=== PATIENT | female | born 1980 | race Caucasian/White ===

== ENCOUNTER 2020-09-20 13:22 | Inpatient (IN) ==
[2020-09-20] MEDS ORDERED: NS 0.9% 1000 ml BAG 1,000 ML IV ONE ×2 (16:02→19:48)
[2020-09-20] MEDS ORDERED: Morphine 4 MG/ML VIAL (1 ml) IV ONE (16:05)
[2020-09-20] MEDS ORDERED: Ondansetron 4 mg VIAL 2 MG/ML 2 ml VIAL IV ONE (16:05)
[2020-09-20 16:56] LABS: ALT 23 U/L (7-52); AST 41 U/L (13-39); Albumin 2.7 g/dL (3.2-5.2); Albumin/Globulin Ratio 0.6 (1-3); Alkaline Phosphatase 293 U/L (34-104); Amylase 184 U/L (29-103); Anion Gap 5 mmol/L (2-11); BUN/Creatinine Ratio 9.8 (8-20); Blood Urea Nitrogen 5 mg/dL (6-24); C Reactive Protein 4.39 mg/L (<8.01); CO2 Carbon Dioxide 30 mmol/L (22-32); Calcium 8.3 mg/dL (8.6-10.3); Chloride 99 mmol/L (101-111); EGFR African American 162.4 (>60); EGFR Non-African American 134.3 (>60); Globulin 4.2 g/dL (2-4); Glucose 97 mg/dL (70-100); Magnesium 1.8 mg/dL (1.9-2.7); Potassium 3.7 mmol/L (3.5-5.0); Sodium 134 mmol/L (135-145); Total Protein 6.9 g/dL (6.4-8.9)
[2020-09-20 17:12] LABS: Hematocrit 32 % (35-47); Hemoglobin 10.6 g/dL (12.0-16.0); Mean Corpuscular HGB Conc 34 g/dL (31-36); Mean Corpuscular Hemoglobin 36 pg (27-31); Mean Corpuscular Volume 108 fL (80-97); Red Blood Count 2.92 10^6 /uL (3.70-4.87); White Blood Count 5.6 10^3/uL (3.5-10.8)
[2020-09-20 17:13] LABS: ABS Lymphocytes 0.6 10^3/ul (1.0-4.8); ABS Monocytes 0.5 10^3/ul (0-0.8); ABS Neutrophils 4.5 10^3/ul (1.5-7.7); Eosinophil % 0.2 %; Lipase 1191 U/L (11.0-82.0); Lymphocyte % 11.3 %; Mean Platelet Volume 8.3 fL (7.4-10.4); Platelet Count 188 10^3/uL (150-450); Red Cell Distribution Width 16 % (10-15)
[2020-09-20] MEDS ORDERED: Iohexol 300 (CONTRAST) 10 ML SDV IV ONE (17:20)
[2020-09-20] MEDS ORDERED: Magnesium Sulfate IV 1GM/100ML 1 GM/100 ML BAG IV ONE (17:58)
[2020-09-20] MEDS ORDERED: Ondansetron 4 mg VIAL 2 MG/ML 2 ml VIAL IV PRN (19:48)
[2020-09-20] MEDS ORDERED: Potassium Chlor 20 meq TAB.ER PO ONE (19:48)
[2020-09-20] MEDS ORDERED: Thiamine 100 MG/ML 2 ml VIAL 100 MG, Folic Acid 1 MG, Multiple Vitamin IV ADULT 10 ML i... IV ONE ×2 (19:55→23:00)
[2020-09-20] MEDS ORDERED: LORazepam 2 mg VIAL 1 ml IV PUSH SCH (20:00)
[2020-09-20] MEDS ORDERED: NS 0.9% 1000 ml BAG 1,000 ML IV SCH (20:00)
[2020-09-20 20:30] LABS: Alcohol, S < 10 mg/dL (<10)
[2020-09-20] MEDS: Morphine 4 MG/ML VIAL (1 ml) IV PRN (21:12)
[2020-09-20 21:15] LABS: Urine Appearance Clear; Urine Bilirubin Negative (Negative); Urine Blood Negative (Negative); Urine Color Amber; Urine Glucose Negative (Negative); Urine Ketones Negative (Negative); Urine Nitrite Negative (Negative); Urine Protein Negative (Negative); Urine Specific Gravity 1.056 (1.010-1.030); Urine Urobilinogen Positive (Negative)
[2020-09-21] MEDS: Pantoprazole VIAL 40 MG VIAL IV SCH ×2 (02:07→07:44)
[2020-09-21] MEDS: Morphine 4 MG/ML VIAL (1 ml) IV PRN (02:22)
[2020-09-21 06:21] LABS: INR 1.1 (0.82-1.09)
[2020-09-21 06:39] LABS: ABS Eosinophils 0.1 10^3/ul (0-0.6); ABS Lymphocytes 0.7 10^3/ul (1.0-4.8); ABS Monocytes 0.4 10^3/ul (0-0.8); ABS Neutrophils 4.2 10^3/ul (1.5-7.7); Eosinophil % 1.1 %; Hematocrit 28 % (35-47); Hemoglobin 9.4 g/dL (12.0-16.0); Lymphocyte % 13.2 %; Mean Corpuscular HGB Conc 33 g/dL (31-36); Mean Corpuscular Hemoglobin 36 pg (27-31); Mean Corpuscular Volume 109 fL (80-97); Mean Platelet Volume 8.5 fL (7.4-10.4); Nucleated Red Blood Cells % 0.1; Platelet Count 149 10^3/uL (150-450); Red Blood Count 2.58 10^6 /uL (3.70-4.87); Red Cell Distribution Width 16 % (10-15); White Blood Count 5.4 10^3/uL (3.5-10.8)
[2020-09-21 06:42] LABS: Albumin 2.2 g/dL (3.2-5.2); Albumin/Globulin Ratio 0.6 (1-3); BUN/Creatinine Ratio 10.3 (8-20); Calcium 7.2 mg/dL (8.6-10.3); EGFR African American 221.4 (>60); Globulin 3.4 g/dL (2-4); HDL Cholesterol 24.9 mg/dL; Indirect Bilirubin 0.5 mg/dL (0.3-1.0); Potassium 3.3 mmol/L (3.5-5.0); Total Bilirubin 1.2 mg/dL (0.2-1.0); Total Protein 5.6 g/dL (6.4-8.9)
[2020-09-21 07:01] LABS: TSH Ultra Thyroid Stim Horm 5.19 mcIU/mL (0.34-5.60)
[2020-09-21] MEDS ORDERED: KCL 20 MEQ/100 ML IVPREMIX 20 MEQ/100 ML BAG IV ONE (07:40)
[2020-09-21] MEDS: Multivitamins/Minerals TAB PO SCH (07:45)
[2020-09-21] MEDS: Lactated Ringers 1000 ml BAG 1,000 ML IV SCH ×3 (11:24→20:04)
[2020-09-21] MEDS: KCL 20 MEQ/100 ML IVPREMIX 20 MEQ/100 ML BAG IV SCH ×2 (11:24→13:58)
[2020-09-22] MEDS: Lactated Ringers 1000 ml BAG 1,000 ML IV SCH ×3 (00:10→06:41)
[2020-09-22 07:28] LABS: ABS Basophils 0.1 10^3/ul (0-0.2); ABS Lymphocytes 0.9 10^3/ul (1.0-4.8); ABS Monocytes 0.6 10^3/ul (0-0.8); ABS Neutrophils 4.4 10^3/ul (1.5-7.7); Eosinophil % 0.3 %; Hematocrit 28 % (35-47); Hemoglobin 9.1 g/dL (12.0-16.0); Lymphocyte % 15.4 %; Mean Corpuscular HGB Conc 33 g/dL (31-36); Mean Corpuscular Hemoglobin 37 pg (27-31); Mean Corpuscular Volume 113 fL (80-97); Nucleated Red Blood Cells % 0.1; Platelet Count 147 10^3/uL (150-450); Red Blood Count 2.46 10^6 /uL (3.70-4.87); Red Cell Distribution Width 17 % (10-15)
[2020-09-22 07:37] LABS: Anion Gap 2 mmol/L (2-11); BUN/Creatinine Ratio 6.6 (8-20); Blood Urea Nitrogen 4 mg/dL (6-24); CO2 Carbon Dioxide 27 mmol/L (22-32); Calcium 7.5 mg/dL (8.6-10.3); Chloride 107 mmol/L (101-111); EGFR African American 132.1 (>60); EGFR Non-African American 109.2 (>60); Magnesium 1.8 mg/dL (1.9-2.7); Potassium 4.2 mmol/L (3.5-5.0); Sodium 136 mmol/L (135-145)
[2020-09-22] MEDS ORDERED: Dextrose 50% Syringe 50 ml 25 GM/50 ML SYRINGE IV PUSH PRN (08:12)
[2020-09-22] MEDS ORDERED: Magnesium Sulfate IV 1GM/100ML 1 GM/100 ML BAG IV ONE (08:15)
[2020-09-22] MEDS ORDERED: Dextrose 50% Syringe 50 ml 25 GM/50 ML SYRINGE ONE ×2 (08:21→12:48)
[2020-09-22] MEDS: Pantoprazole VIAL 40 MG VIAL IV SCH (08:24)
[2020-09-22] MEDS: Multivitamins/Minerals TAB PO SCH (08:30)
[2020-09-22 08:39] LABS: C Reactive Protein 81.98 mg/L (<8.01)
[2020-09-22 08:56] LABS: % Iron Saturation 18 % (15-55); Iron 34 ug/dL (50-212); Total Iron Binding Capacity 190 mcg/dL (250-450); Transferrin 136 mg/dL (203-362); Unsaturated Iron Binding < 175 ug/dL
[2020-09-22 09:17] LABS: Folate > 20.00 ng/mL (>3.99)
[2020-09-22 09:18] LABS: Vitamin B12 456 pg/mL (180-914)
[2020-09-22 09:37] LABS: Glucose 42 mg/dL (70-100)
[2020-09-22] MEDS ORDERED: Lactated Ringers 1000 ml BAG 1,000 ML IV SCH (11:38)
[2020-09-22] MEDS ORDERED: Dextrose 50% Syringe 50 ml 25 GM/50 ML SYRINGE IV PUSH ONE (12:33)
[2020-09-22] MEDS: D5NS 0.9% 1000 ml BAG 1,000 ML IV SCH ×2 (14:45→20:30)
[2020-09-22] MEDS: diPHENhydraMINE IV 50 MG/ML 1 ml VIAL (BENADRYL) IV PRN (14:52)
[2020-09-23] MEDS: D5NS 0.9% 1000 ml BAG 1,000 ML IV SCH ×4 (02:15→23:33)
[2020-09-23] MEDS: diPHENhydraMINE IV 50 MG/ML 1 ml VIAL (BENADRYL) IV PRN ×3 (04:28→23:33)
[2020-09-23 06:24] LABS: ABS Basophils 0.1 10^3/ul (0-0.2); ABS Lymphocytes 1.3 10^3/ul (1.0-4.8); ABS Monocytes 0.6 10^3/ul (0-0.8); ABS Neutrophils 3.6 10^3/ul (1.5-7.7); Eosinophil % 0.6 %; Hematocrit 25 % (35-47); Lymphocyte % 23.4 %; Mean Corpuscular HGB Conc 32 g/dL (31-36); Mean Corpuscular Hemoglobin 37 pg (27-31); Mean Corpuscular Volume 112 fL (80-97); Mean Platelet Volume 8.3 fL (7.4-10.4); Platelet Count 149 10^3/uL (150-450); Red Blood Count 2.19 10^6 /uL (3.70-4.87); Red Cell Distribution Width 17 % (10-15); White Blood Count 5.6 10^3/uL (3.5-10.8)
[2020-09-23 06:48] LABS: BUN/Creatinine Ratio 7.5 (8-20); Calcium 7.2 mg/dL (8.6-10.3); EGFR African American 118.6 (>60); Magnesium 1.9 mg/dL (1.9-2.7); Potassium 3.9 mmol/L (3.5-5.0)
[2020-09-23] MEDS: Multivitamins/Minerals TAB PO SCH (08:30)
[2020-09-23] MEDS: Pantoprazole VIAL 40 MG VIAL IV SCH (08:44)
[2020-09-24] MEDS: diPHENhydraMINE IV 50 MG/ML 1 ml VIAL (BENADRYL) IV PRN ×4 (05:25→23:47)
[2020-09-24 06:06] LABS: Albumin 2.1 g/dL (3.2-5.2); Albumin/Globulin Ratio 0.6 (1-3); BUN/Creatinine Ratio 5.5 (8-20); Calcium 7.4 mg/dL (8.6-10.3); EGFR African American 148.9 (>60); Globulin 3.3 g/dL (2-4); Magnesium 1.9 mg/dL (1.9-2.7); Potassium 3.5 mmol/L (3.5-5.0); Total Bilirubin 1.3 mg/dL (0.2-1.0); Total Protein 5.4 g/dL (6.4-8.9)
[2020-09-24 07:45] LABS: ABS Eosinophils 0.1 10^3/ul (0-0.6); ABS Lymphocytes 0.9 10^3/ul (1.0-4.8); ABS Monocytes 0.7 10^3/ul (0-0.8); ABS Neutrophils 3.7 10^3/ul (1.5-7.7); Eosinophil % 1.2 %; Hematocrit 25 % (35-47); Hemoglobin 8.1 g/dL (12.0-16.0); Lymphocyte % 16.3 %; Mean Corpuscular HGB Conc 32 g/dL (31-36); Mean Corpuscular Hemoglobin 37 pg (27-31); Mean Corpuscular Volume 114 fL (80-97); Mean Platelet Volume 8.3 fL (7.4-10.4); Nucleated Red Blood Cells % 0.1; Platelet Count 157 10^3/uL (150-450); Red Blood Count 2.23 10^6 /uL (3.70-4.87); Red Cell Distribution Width 17 % (10-15); White Blood Count 5.4 10^3/uL (3.5-10.8)
[2020-09-24] MEDS: Multivitamins/Minerals TAB PO SCH (09:14)
[2020-09-24] MEDS: Pantoprazole VIAL 40 MG VIAL IV SCH (09:14)
[2020-09-24] MEDS: D5NS 0.9% 1000 ml BAG 1,000 ML IV SCH ×2 (09:26→20:21)
[2020-09-24 17:20] LABS: Body Fluid Source Peritonial Fluid
[2020-09-24 22:35] LABS: Body Fluid Mono 5 %; Body Fluid Other Cells 16
[2020-09-25 05:29] LABS: ABS Eosinophils 0.1 10^3/ul (0-0.6); ABS Monocytes 0.5 10^3/ul (0-0.8); ABS Neutrophils 3.4 10^3/ul (1.5-7.7); Hematocrit 24 % (35-47); Hemoglobin 7.6 g/dL (12.0-16.0); Lymphocyte % 19.6 %; Mean Corpuscular HGB Conc 32 g/dL (31-36); Mean Corpuscular Hemoglobin 36 pg (27-31); Mean Corpuscular Volume 113 fL (80-97); Nucleated Red Blood Cells % 0.1; Platelet Count 161 10^3/uL (150-450); Red Blood Count 2.09 10^6 /uL (3.70-4.87); Red Cell Distribution Width 17 % (10-15)
[2020-09-25 05:50] LABS: BUN/Creatinine Ratio 4.9 (8-20); Calcium 7.5 mg/dL (8.6-10.3); EGFR African American 132.1 (>60); EGFR Non-African American 109.2 (>60); Potassium 3.4 mmol/L (3.5-5.0)
[2020-09-25] MEDS: D5NS 0.9% 1000 ml BAG 1,000 ML IV SCH (06:13)
[2020-09-25] MEDS: Pantoprazole VIAL 40 MG VIAL IV SCH (08:55)
[2020-09-25] MEDS: Multivitamins/Minerals TAB PO SCH (08:57)
[2020-09-25] MEDS: diPHENhydraMINE IV 50 MG/ML 1 ml VIAL (BENADRYL) IV PRN (14:10)
[2020-09-25] MEDS ORDERED: Dextrose 50% Syringe 50 ml 25 GM/50 ML SYRINGE ONE (14:22)
[2020-09-25 15:05] LABS: ABS Basophils 0.1 10^3/ul (0-0.2); ABS Lymphocytes 1.1 10^3/ul (1.0-4.8); ABS Monocytes 0.7 10^3/ul (0-0.8); ABS Neutrophils 5.2 10^3/ul (1.5-7.7); Eosinophil % 0.6 %; Hematocrit 28 % (35-47); Hemoglobin 8.9 g/dL (12.0-16.0); Lymphocyte % 15.4 %; Mean Corpuscular HGB Conc 32 g/dL (31-36); Mean Corpuscular Hemoglobin 37 pg (27-31); Mean Corpuscular Volume 114 fL (80-97); Mean Platelet Volume 8.2 fL (7.4-10.4); Nucleated Red Blood Cells % 0.2; Platelet Count 213 10^3/uL (150-450); Red Blood Count 2.43 10^6 /uL (3.70-4.87); Red Cell Distribution Width 17 % (10-15); White Blood Count 7.1 10^3/uL (3.5-10.8)
[2020-09-25] MEDS ORDERED: D5NS 0.9% 1000 ml BAG 1,000 ML IV SCH (15:09)
[2020-09-25 15:14] LABS: BUN/Creatinine Ratio 3.9 (8-20); Calcium 7.9 mg/dL (8.6-10.3); EGFR Non-African American 83.5 (>60); Potassium 3.3 mmol/L (3.5-5.0)
[2020-09-25] MEDS: KCL 20 MEQ/100 ML IVPREMIX 20 MEQ/100 ML BAG IV SCH ×2 (16:51→22:36)
[2020-09-25] MEDS ORDERED: Morphine 2 MG/ML SYRINGE IV PRN (18:56)
[2020-09-26] MEDS ORDERED: Furosemide 20 mg/2 ml IV VIAL IV SLOW PU ONE (00:35)
[2020-09-26 03:40] LABS: Hematocrit 25 % (35-47); Hemoglobin 8.1 g/dL (12.0-16.0); Mean Corpuscular HGB Conc 32 g/dL (31-36); Mean Corpuscular Hemoglobin 36 pg (27-31); Mean Corpuscular Volume 114 fL (80-97); Mean Platelet Volume 8.3 fL (7.4-10.4); Platelet Count 200 10^3/uL (150-450); Red Blood Count 2.22 10^6 /uL (3.70-4.87); Red Cell Distribution Width 16 % (10-15); White Blood Count 6.1 10^3/uL (3.5-10.8)
[2020-09-26 03:57] LABS: ALT 13 U/L (7-52); Albumin 2.1 g/dL (3.2-5.2); Albumin/Globulin Ratio 0.6 (1-3); Alkaline Phosphatase 208 U/L (34-104); BUN/Creatinine Ratio 4.3 (8-20); Blood Urea Nitrogen 3 mg/dL (6-24); CO2 Carbon Dioxide 24 mmol/L (22-32); Calcium 7.9 mg/dL (8.6-10.3); EGFR African American 112.7 (>60); EGFR Non-African American 93.2 (>60); Globulin 3.6 g/dL (2-4); Glucose 64 mg/dL (70-100); Sodium 144 mmol/L (135-145); Total Protein 5.7 g/dL (6.4-8.9)
[2020-09-26] MEDS: Dextrose 50% Syringe 50 ml 25 GM/50 ML SYRINGE IV PUSH PRN (04:04)
[2020-09-26 04:06] LABS: Anion Gap 4 mmol/L (2-11); Chloride 116 mmol/L (101-111)
[2020-09-26 04:44] LABS: Magnesium 1.6 mg/dL (1.9-2.7); Potassium Redraw 3.2 mmol/L (3.5-5.0)
[2020-09-26] MEDS ORDERED: Potassium Chlor 20 meq TAB.ER PO ONE ×2 (07:17→18:31)
[2020-09-26] MEDS ORDERED: Magnesium Sulfate 2 gm BAG 2 GM/50 ML BAG IVPB ONE (07:19)
[2020-09-26] MEDS ORDERED: KCL 10 MEQ/50 ML IVPREMIX 10 MEQ/50 ML BAG IV SCH (08:00)
[2020-09-26] MEDS: Pantoprazole VIAL 40 MG VIAL IV SCH (08:47)
[2020-09-26] MEDS: Multivitamins/Minerals TAB PO SCH (08:52)
[2020-09-26] MEDS: KCL 10 MEQ/50 ML IVPREMIX 10 MEQ/50 ML BAG IV SCH ×2 (10:25→11:33)
[2020-09-26] MEDS: Morphine 2 MG/ML SYRINGE IV PRN ×3 (11:16→19:57)
[2020-09-26] MEDS: Enoxaparin 40 MG/0.4 ML SYR SUBCUT SCH (14:41)
[2020-09-26 16:01] LABS: Potassium 3.8 mmol/L (3.5-5.0)
[2020-09-26 16:07] LABS: BUN/Creatinine Ratio 4.2 (8-20); EGFR African American 110.9 (>60); EGFR Non-African American 91.6 (>60)
[2020-09-27] MEDS: Morphine 2 MG/ML SYRINGE IV PRN ×4 (00:15→20:34)
[2020-09-27 04:59] LABS: ABS Basophils 0.1 10^3/ul (0-0.2); ABS Lymphocytes 1.4 10^3/ul (1.0-4.8); ABS Monocytes 0.6 10^3/ul (0-0.8); ABS Neutrophils 4.2 10^3/ul (1.5-7.7); Eosinophil % 0.6 %; Hematocrit 26 % (35-47); Hemoglobin 8.4 g/dL (12.0-16.0); Lymphocyte % 22.1 %; Mean Corpuscular HGB Conc 33 g/dL (31-36); Mean Corpuscular Hemoglobin 37 pg (27-31); Mean Corpuscular Volume 112 fL (80-97); Nucleated Red Blood Cells % 0.1; Platelet Count 215 10^3/uL (150-450); Red Blood Count 2.29 10^6 /uL (3.70-4.87); Red Cell Distribution Width 16 % (10-15); White Blood Count 6.4 10^3/uL (3.5-10.8)
[2020-09-27 05:12] LABS: BUN/Creatinine Ratio 5.8 (8-20); Blood Urea Nitrogen 4 mg/dL (6-24); CO2 Carbon Dioxide 23 mmol/L (22-32); Calcium 8.1 mg/dL (8.6-10.3); EGFR African American 114.6 (>60); EGFR Non-African American 94.7 (>60); Glucose 50 mg/dL (70-100); Magnesium 1.9 mg/dL (1.9-2.7); Potassium 3.5 mmol/L (3.5-5.0); Sodium 145 mmol/L (135-145)
[2020-09-27 05:22] LABS: Anion Gap 6 mmol/L (2-11); Chloride 116 mmol/L (101-111)
[2020-09-27] MEDS: Dextrose 50% Syringe 50 ml 25 GM/50 ML SYRINGE IV PUSH PRN (05:31)
[2020-09-27] MEDS ORDERED: Potassium Chlor 20 meq TAB.ER PO ONE ×3 (07:17→18:29)
[2020-09-27] MEDS ORDERED: Furosemide 20 mg/2 ml IV VIAL IV SLOW PU ONE (07:56)
[2020-09-27] MEDS ORDERED: Potassium Chloride LIQUID 20 MEQ/15 ML LIQUID PO ONE (08:57)
[2020-09-27] MEDS: Multivitamins/Minerals TAB PO SCH (09:03)
[2020-09-27] MEDS: Pantoprazole VIAL 40 MG VIAL IV SCH (09:03)
[2020-09-27] MEDS: oxyCODONE SR 10 mg TAB PO PRN ×2 (10:09→17:56)
[2020-09-27 13:39] LABS: Amylase 14 U/L (29-103); Lipase < 10 U/L (11.0-82.0)
[2020-09-27] MEDS: Enoxaparin 40 MG/0.4 ML SYR SUBCUT SCH (13:41)
[2020-09-27 17:17] LABS: BUN/Creatinine Ratio 6.2 (8-20); Calcium 8.2 mg/dL (8.6-10.3); EGFR African American 122.8 (>60); EGFR Non-African American 101.5 (>60); Potassium 3.4 mmol/L (3.5-5.0)
[2020-09-27] MEDS ORDERED: Furosemide 40 mg/4 ml IV VIAL IV SLOW PU ONE (17:57)
[2020-09-27] MEDS: KCL 10 MEQ/50 ML IVPREMIX 10 MEQ/50 ML BAG IV SCH ×2 (19:50→21:28)
[2020-09-28] MEDS: oxyCODONE SR 10 mg TAB PO PRN (02:05)
[2020-09-28] MEDS: Morphine 2 MG/ML SYRINGE IV PRN (05:10)
[2020-09-28 06:16] LABS: ABS Eosinophils 0.1 10^3/ul (0-0.6); ABS Lymphocytes 1.5 10^3/ul (1.0-4.8); ABS Monocytes 0.5 10^3/ul (0-0.8); ABS Neutrophils 2.2 10^3/ul (1.5-7.7); Eosinophil % 1.3 %; Hematocrit 23 % (35-47); Hemoglobin 7.6 g/dL (12.0-16.0); Lymphocyte % 34.8 %; Mean Corpuscular HGB Conc 33 g/dL (31-36); Mean Corpuscular Hemoglobin 36 pg (27-31); Mean Corpuscular Volume 110 fL (80-97); Mean Platelet Volume 8.2 fL (7.4-10.4); Nucleated Red Blood Cells % 0.1; Platelet Count 192 10^3/uL (150-450); Red Cell Distribution Width 16 % (10-15); White Blood Count 4.2 10^3/uL (3.5-10.8)
[2020-09-28 06:18] LABS: BUN/Creatinine Ratio 4.5 (8-20); Calcium 7.8 mg/dL (8.6-10.3); EGFR African American 120.6 (>60); EGFR Non-African American 99.7 (>60); Magnesium 1.4 mg/dL (1.9-2.7); Potassium 3.9 mmol/L (3.5-5.0)
[2020-09-28] MEDS: Pantoprazole VIAL 40 MG VIAL IV SCH (08:27)
[2020-09-28] MEDS: Dextrose 50% Syringe 50 ml 25 GM/50 ML SYRINGE IV PUSH PRN (08:27)
[2020-09-28] MEDS: Multivitamins/Minerals TAB PO SCH (08:27)
[2020-09-28] MEDS ORDERED: Magnesium Sulfate 2 gm BAG 2 GM/50 ML BAG IVPB ONE (11:04)
[2020-09-28 13:08] VITALS: BP 95/57
[2020-09-28] MEDS: Enoxaparin 40 MG/0.4 ML SYR SUBCUT SCH (14:29)
[2020-09-29 11:33] LABS: Fluid Type, Amylase PERITONEAL
[2020-09-29 11:36] LABS: Fluid Type, Glucose PERITONEAL; Glucose, BF 79 mg/dL
[2020-09-29 11:42] LABS: Albumin, BF 0.7 g/dL; Fluid Type, Albumin PERITONEAL
== END 2020-09-28 15:05 | disposition left against medical advice (07) | DRG 282 ==
LOC: ED 13:22 → MED 19:42 → SSU 09-22 03:28 → ICU 09-26 00:16
PROVIDERS: ADMIT Student in an Organized Health Care Education/Training Program; ATTEND Internal Medicine